=== PATIENT | female | born 1960 | race African-American/Black ===

== ENCOUNTER 2019-05-28 22:01 | Inpatient (IN) | payer OTHER ==
[~2019-05-28] VITALS: Ht 162.6 cm; Wt 86.2 kg
[2019-05-29] MEDS ORDERED: ONDANSETRON HCL 4MG/2ML INJ IV ONE (00:45)
[2019-05-29] MEDS ORDERED: MORPHINE SULFATE 4 MG/ML CPJ (NOT FOR IM USE) IV ONE (00:45)
[2019-05-29] MEDS ORDERED: PROPOFOL 200MG/20ML VIAL IV ONE (00:45)
[2019-05-29] MEDS ORDERED: FENTANYL CITRATE/PF 50MCG/ML 2ML VIAL IV ONE ×2 (03:00→08:45)
[2019-05-29 08:51] LABS: BASOPHILS % 0.4 % (0.0-2.0); EOSINOPHILS % 0.3 % (0.0-5.0); HEMOGLOBIN. 13.1 g/dL (12.0-16.0); MEAN CORPUSCULAR HEMOGLOBIN 32.5 pg (28.0-32.0); MEAN CORPUSCULAR VOLUME 93.9 fL (81.0-99.0); MEAN PLATELET VOLUME 9.1 fl (7.4-10.4); MONOCYTES % 9.4 % (2.0-8.0); NEUTROPHILS % 73.9 % (40.0-76.0); PLATELET 265 x1000/uL (130-400); RED BLOOD CELL COUNT 4.04 mill/uL (4.2-5.4); RED CELL DISTRIBUTION WIDTH 13.7 % (11.6-14.6)
[2019-05-29 08:59] LABS: CHLORIDE 111 mEq/L (98-107); PROTHROMBIN TIME 10.2 sec (9.6-11.0)
[2019-05-29] MEDS ORDERED: LORAZEPAM 0.5MG TABLET PO PRN (09:15)
[2019-05-29] MEDS ORDERED: CLONIDINE 0.1MG TABLET PO PRN (09:15)
[2019-05-29] MEDS ORDERED: ACETAMINOPHEN 325MG TABLET PO PRN (09:15)
[2019-05-29] MEDS ORDERED: MAGNESIUM/ALUMINUM HYDROXIDE/SIMETHICONE 30ML UDC PO PRN (09:15)
[2019-05-29] MEDS ORDERED: ONDANSETRON HCL 4MG/2ML INJ IV PRN (09:15)
[2019-05-29] MEDS ORDERED: ZOLPIDEM TARTRATE 5MG TABLET PO PRN (09:15)
[2019-05-29] MEDS ORDERED: NITROGLYCERIN 0.4MG TABLET SL SL PRN (09:15)
[2019-05-29] MEDS ORDERED: DOCUSATE SODIUM 100MG CAPSULE PO PRN (09:15)
[2019-05-29] MEDS ORDERED: GUAIFENESIN 200MG/10ML SUGAR FREE UDC PO PRN (09:15)
[2019-05-29] MEDS ORDERED: IPRATROPIUM/ALBUTEROL 0.5-3(2.5)MG/3ML NEB HHN PRN (09:15)
[2019-05-29] MEDS ORDERED: ENOXAPARIN 40MG/0.4ML SYR SUBCUT SCH (09:30)
[2019-05-29 11:30] VITALS: BP 146/88
[2019-05-29 12:00] VITALS: BP 146/88
[2019-05-29] MEDS: KETOROLAC 15MG/ML VIAL IV PRN (12:19)
[2019-05-29] MEDS: DEXT 5%/0.9% NACL 1,000 ML IV SCH (12:30)
[2019-05-29] MEDS: TRAMADOL 50MG TABLET PO PRN (16:08)
[2019-05-29 20:00] VITALS: BP 111/84
[2019-05-29] MEDS: FAMOTIDINE 20MG TABLET PO SCH (21:41)
[2019-05-30] VITALS: BP 117/61
[2019-05-30] MEDS: MORPHINE SULFATE 2 MG/ML CPJ (NOT FOR IM USE) IV PRN (02:29)
[2019-05-30] MEDS: DEXT 5%/0.9% NACL 1,000 ML IV SCH ×2 (02:32→15:13)
[2019-05-30 04:00] VITALS: BP 110/77
[2019-05-30 06:40] LABS: *BARBITURATES SCREEN URINE NEGATIVE (NEGATIVE)
[2019-05-30 06:41] LABS: *BENZODIAZEPINES SCREEN URINE NEGATIVE (NEGATIVE); *COCAINE SCREEN URINE NEGATIVE (NEGATIVE); METHADONE URINE SCREEN NEGATIVE (NEGATIVE); OPIATES URINE SCREEN PRESUMTIVE POSITIVE (NEGATIVE); PHENCYCLIDINE URINE SCREEN NEGATIVE (NEGATIVE)
[2019-05-30 06:42] LABS: *AMPHETAMINES SCREEN URINE NEGATIVE (NEGATIVE); CANNABINOID URINE SCREEN NEGATIVE (NEGATIVE)
[2019-05-30 08:00] VITALS: BP 120/60
[2019-05-30] MEDS ORDERED: VANCOMYCIN HCL 500 MG/VIAL ONE (08:04)
[2019-05-30] MEDS ORDERED: BACITRACIN 15GM TUBE TOP ONE (08:04)
[2019-05-30] MEDS: FAMOTIDINE 20MG TABLET PO SCH ×2 (08:54→20:27)
[2019-05-30] MEDS ORDERED: FENTANYL CITRATE/PF 50MCG/ML 2ML VIAL ONE (11:16)
[2019-05-30] MEDS ORDERED: MIDAZOLAM HCL 2 MG/2 ML VIAL ONE (11:17)
[2019-05-30] MEDS ORDERED: SUCCINYLCHOLINE CHLORIDE 200MG/10ML IV ONE (11:17)
[2019-05-30] MEDS ORDERED: ROCURONIUM BROMIDE 10MG/ML VIAL 5ML IV ONE (11:17)
[2019-05-30] MEDS ORDERED: LIDOCAINE HCL 1% 20ML VIAL (Pyxis) INJ ONE (11:18)
[2019-05-30] MEDS ORDERED: EPHEDRINE SULFATE 50MG/ML VIAL ONE (11:18)
[2019-05-30] MEDS ORDERED: PROPOFOL 200MG/20ML VIAL IV ONE (11:18)
[2019-05-30] MEDS ORDERED: SODIUM CHLORIDE 0.9% 10ML VIAL ONE ×2 (11:18→11:47)
[2019-05-30] MEDS ORDERED: ESMOLOL HCL 10MG/ML 10ML VIAL IV ONE (11:35)
[2019-05-30] MEDS ORDERED: CEFAZOLIN SODIUM 1000MG/VIAL ONE (11:47)
[2019-05-30] MEDS ORDERED: LABETALOL HCL 5MG/ML VIAL 20ML IV ONE ×2 (12:05→12:06)
[2019-05-30] MEDS ORDERED: GLYCOPYRROLATE 0.2 MG/ML 2ML VIAL ONE (12:10)
[2019-05-30] MEDS ORDERED: ONDANSETRON HCL 4MG/2ML INJ ONE (12:15)
[2019-05-30] MEDS ORDERED: DEXAMETHASONE 4MG/ML 1ML VIAL ONE (12:15)
[2019-05-30] MEDS ORDERED: HYDROMORPHONE HCL/PF 2MG/ML (OR) ONE (12:57)
[2019-05-30] MEDS: HYDROMORPHONE HCL/PF 2MG/ML CPJ IV PRN ×4 (13:03→13:18)
[2019-05-30 16:00] VITALS: BP 118/70
[2019-05-30] MEDS: KETOROLAC 15MG/ML VIAL IV PRN (20:26)
[2019-05-30] MEDS: CEFAZOLIN 1000MG PREMIX 50 ML IV SCH (20:27)
[2019-05-31] VITALS: BP 122/50
[2019-05-31] MEDS: MORPHINE SULFATE 2 MG/ML CPJ (NOT FOR IM USE) IV PRN (00:16)
[2019-05-31 04:00] VITALS: BP 99/44
[2019-05-31] MEDS: DEXT 5%/0.9% NACL 1,000 ML IV SCH (04:06)
[2019-05-31] MEDS: CEFAZOLIN 1000MG PREMIX 50 ML IV SCH (04:06)
[2019-05-31 08:00] VITALS: BP 128/70
[2019-05-31] MEDS: FAMOTIDINE 20MG TABLET PO SCH ×2 (10:00→21:18)
[2019-05-31] MEDS: KETOROLAC 15MG/ML VIAL IV PRN ×2 (10:00→17:59)
[2019-05-31 12:00] VITALS: BP 125/69
[2019-05-31 16:00] VITALS: BP 108/60
[2019-05-31 20:00] VITALS: BP 130/71
[2019-05-31] MEDS: TRAMADOL 50MG TABLET PO PRN (22:08)
[2019-06-01] VITALS: BP 122/66
[2019-06-01 04:00] VITALS: BP 114/81
[2019-06-01] MEDS: KETOROLAC 15MG/ML VIAL IV PRN ×2 (04:47→13:49)
[2019-06-01 08:00] VITALS: BP 108/75
[2019-06-01] MEDS: FAMOTIDINE 20MG TABLET PO SCH (08:54)
[2019-06-01] MEDS: TRAMADOL 50MG TABLET PO PRN (11:53)
[2019-06-01 12:00] VITALS: BP 128/71
[2019-06-01 12:39] VITALS: BP 128/71
[2019-06-01 16:00] VITALS: BP 112/74
== END 2019-06-01 19:24 | disposition home or self-care (01) | DRG 494 ==
LOC: ER 22:01 → 6EST 05-29 09:02 → EDBEDREQ 05-29 09:21 → EDBEDREQSVC 05-29 09:40 → ENRESERV 05-29 09:42
PROVIDERS: ADMIT Internal Medicine; ATTEND Internal Medicine
PROC: 0QSJ04Z Reposition Right Fibula with Internal Fixation Device, Open Approach (ICD-10-PCS; principal; 2019-05-30)
PROC: 0QSG06Z Reposition Right Tibia with Intramedullary Internal Fixation Device, Open Approach (ICD-10-PCS; 2019-05-30)
DX: S82.831A Other fracture of upper and lower end of right fibula, initial encounter for closed fracture (principal); S82.391A Other fracture of lower end of right tibia, initial encounter for closed fracture; F17.210 Nicotine dependence, cigarettes, uncomplicated; W01.0XXA Fall on same level from slipping, tripping and stumbling without subsequent striking against object, initial encounter; I10 Essential (primary) hypertension; Y93.89 Activity, other specified; Y92.89 Other specified places as the place of occurrence of the external cause; Y99.8 Other external cause status; Z98.891 History of uterine scar from previous surgery
CPT/HCPCS: 36415; 71045; 73590; 73600; 76000; 80061; 80305; 83036; 93005; 93970; 96374; 97116; 97162; 99285; C1713; C1769; J0330; J0690; J1100; J1170; J1650; J1885; J2250; J2270; J2405; J2704; J3010; J3370; J3490; J7042